=== PATIENT | female | born 1955 | race Caucasian/White ===

== ENCOUNTER 2019-03-27 11:59 | Day surgery (SDC) | payer BC ==
[2019-03-27] MEDS ORDERED: PROPOFOL 40 ML (14:38)
[2019-03-27] MEDS ORDERED: LIDOCAINE 2% (SDV) 5 ML INJ (14:38)
== END 2019-03-27 16:13 | disposition home or self-care (01) ==
LOC: GIL 11:59
DX: Z12.11 Encounter for screening for malignant neoplasm of colon (principal); K64.8 Other hemorrhoids; K57.30 Diverticulosis of large intestine without perforation or abscess without bleeding; E11.9 Type 2 diabetes mellitus without complications; I10 Essential (primary) hypertension; E78.00 Pure hypercholesterolemia, unspecified; Z79.82 Long term (current) use of aspirin; Z79.84 Long term (current) use of oral hypoglycemic drugs
CPT/HCPCS: 45378